=== PATIENT | male | born 1975 | race Caucasian/White ===

== ENCOUNTER → 2020-07-16 | Outpatient (CLI) | payer BC, OTHER | LOC: SLEEP 12:56 | DX: G47.33 Obstructive sleep apnea (adult) (pediatric) (principal); N18.9 Chronic kidney disease, unspecified; E66.01 Morbid (severe) obesity due to excess calories; Z68.44 Body mass index [BMI] 60.0-69.9, adult; Z79.82 Long term (current) use of aspirin | CPT/HCPCS: 95811 ==